=== PATIENT | male | born 1995 | race Two or more races ===

== ENCOUNTER 2017-04-15 13:08 | Emergency (ER) | payer SELFPAY ==
[~2017-04-15] VITALS: Ht 182.9 cm; Wt 82.0 kg
[2017-04-15] MEDS ORDERED: DEXT5TAB15 PO (13:18)
[2017-04-15 14:22] VITALS: BP 126/63
== END 2017-04-15 14:48 | disposition home or self-care (01) ==
LOC: ER 13:09
DX: S09.8XXA Other specified injuries of head, initial encounter (principal); F32.9 Major depressive disorder, single episode, unspecified; F20.9 Schizophrenia, unspecified; W22.8XXA Striking against or struck by other objects, initial encounter; Y93.89 Activity, other specified; Y92.89 Other specified places as the place of occurrence of the external cause; Y99.8 Other external cause status
CPT/HCPCS: 99283; Z7610